=== PATIENT | male | born 1970 | race Caucasian/White ===

== ENCOUNTER 2019-06-25 07:51 | Inpatient (IN) | payer OTHER ==
[~2019-06-25] VITALS: Ht 167.6 cm; Wt 126.7 kg
[~2019-06-25 07:51] MED LIST: AMLODIPINE BESY10 MG PO; ASPIR 8181 MG PO; BENADRYL25 MG PO; COREG25 MG PO; CYMBALTA60 MG PO; DEMADEX20 MG PO; LEVEMIR SUBQ; LISINOPRIL40 MG PO; LISINOPRIL5 MG PO; NEURONTIN600 MG PO; NORCO 10-325 T1 EACH PO; OMEPRAZOLE 20 M20 M1 PO; SENNA8.6 MG PO
[2019-06-25 08:05] VITALS: BP 128/61
[2019-06-25] MEDS ORDERED: SPIRONOLACTONE25 MG PO (08:23)
[2019-06-25 08:34] LABS: ABSOLUTE NEUTROPHILS 7.3 thou/uL (1.4-8.2); BASOPHILS 0.6 % (0.0-2.0); EOSINOPHILS 3.1 % (0.0-3.0); HEMATOCRIT 28.1 % (42.0-52.0); HEMOGLOBIN 9.2 gm/dL (14.0-18.0); LYMPHOCYTES 12.8 % (24.0-44.0); MCH 29.9 pg (26.0-34.0); MCHC 32.7 g/dL (28.0-37.0); MCV 91.6 fL (80.0-100.0); MONOCYTES 7.1 % (1.0-8.0); PLATELET COUNT 265 thou/uL (150-400); POLYS 76.4 % (36.0-66.0); RBC 3.07 mil/uL (4.50-6.00); RDW 13.6 % (10.5-14.5); WBC 9.5 thou/uL (4.0-11.0)
[2019-06-25 08:50] LABS: MAGNESIUM 1.8 mg/dL (1.8-2.4); PHOSPHORUS 4.2 mg/dL (2.5-4.9); TROPONIN-I <0.06 ng/mL (<0.06)
[2019-06-25 08:52] LABS: ALBUMIN 2.6 g/dL (3.4-5.0); CALCIUM 9.2 mg/dL (8.5-10.1); CREATININE 2.9 mg/dL (0.7-1.3); TOTAL BILIRUBIN 0.2 mg/dL (<0.1-1.0); TOTAL PROTEIN 7.8 g/dL (6.4-8.2)
[2019-06-25 08:54] LABS: POTASSIUM 6.6 mmol/L (3.5-5.1)
[2019-06-25 09:01] LABS: URINE BILIRUBIN NEGATIVE (Negative); URINE BLOOD TRACE (Negative); URINE CLARITY CLEAR; URINE COLOR YELLOW; URINE GLUCOSE-RANDOM* 1+ (Negative); URINE KETONES NEGATIVE (Negative); URINE LEUKOCYTES-REFLEX NEGATIVE (Negative); URINE NITRITE-REFLEX NEGATIVE (Negative); URINE PROTEIN (DIPSTICK) 2+ (Negative); URINE UROBILINOGEN 0.2 E.U./dl (0.2-1.0)
[2019-06-25 09:09] LABS: BACTERIA-REFLEX 1-9 Few /HPF (None Seen); CASTS None Seen /LPF (None Seen); CRYSTALS None Seen /LPF (None Seen); SQUAMOUS 0-3 Few /LPF (0-3); URINE RBC None Seen /HPF (0-2); URINE WBC-REFLEX None Seen /HPF (0-5)
[2019-06-25 09:43] VITALS: BP 111/55
--- NOTE | 2019-06-25 10:09 | NUR ---
FIRST ATTEMPT REPORT AT 1007
[2019-06-25 10:25] VITALS: BP 119/40
[2019-06-25 10:38] LABS: CHOLESTEROL 278 mg/dL (<200); HDL CHOLESTEROL 37 mg/dL (>40); TC:HDL 7.5 Ratio (Not establshd); TRIGLYCERIDE 472 mg/dL (<150); VLDL 94 mg/dL (<40)
[2019-06-25 10:48] VITALS: BP 117/65
[2019-06-25 15:34] VITALS: BP 148/62
[2019-06-25 16:26] LABS: CALCIUM 9.2 mg/dL (8.5-10.1); CREATININE 2.7 mg/dL (0.7-1.3); POTASSIUM 5.8 mmol/L (3.5-5.1)
[2019-06-25 17:12] LABS: % SATURATION 11 % (20-39); IRON 19 ug/dL (65-175); TIBC 174 ug/dL (250-450)
--- NOTE | 2019-06-25 18:59 | NUR ---
pt admitted from ER for high potassium at 1040am , pt is continuing NS @ 125ML/HR, pt's vs are stable , pt denies pain and SOB at this time, pt 's potassium recheck was 5.8 at 1530pm, has improved ( K 6.6 at 0816am), RN has called dr to report K 5.8, new order receved.
[2019-06-25 19:45] VITALS: BP 154/70
[2019-06-26 00:24] VITALS: BP 155/75
[2019-06-26 02:06] LABS: GLYCOHEMOGLOBIN (HGB A1C) 11.1 % (4.8-5.6)
[2019-06-26 04:40] VITALS: BP 151/53
[2019-06-26 05:54] LABS: ABSOLUTE NEUTROPHILS 6.5 thou/uL (1.4-8.2); BASOPHILS 0.5 % (0.0-2.0); EOSINOPHILS 2.4 % (0.0-3.0); HEMATOCRIT 26.3 % (42.0-52.0); HEMOGLOBIN 8.7 gm/dL (14.0-18.0); LYMPHOCYTES 15.5 % (24.0-44.0); MCH 30.4 pg (26.0-34.0); MCHC 33.1 g/dL (28.0-37.0); MCV 91.8 fL (80.0-100.0); MONOCYTES 6.6 % (1.0-8.0); PLATELET COUNT 248 thou/uL (150-400); RBC 2.87 mil/uL (4.50-6.00); RDW 13.6 % (10.5-14.5); WBC 8.7 thou/uL (4.0-11.0)
[2019-06-26 06:00] LABS: CALCIUM 8.7 mg/dL (8.5-10.1); CREATININE 2.3 mg/dL (0.7-1.3); MAGNESIUM 1.6 mg/dL (1.8-2.4); POTASSIUM 5.4 mmol/L (3.5-5.1)
--- NOTE | 2019-06-26 06:42 | NUR ---
PATIENT IS ADVANCING IN HIS CARE PLAN. VITAL SIGNS STABLE WITH PATIENT HAVING NO COMPLAINTS OF NAUSEA. PATIENT DID STATE PAIN IN FEET WHICH WAS TREATED APPROPRIATELY TO PROVIDERS ORDER. FULLY ALERT AND ORIENTED, PATIENT IS ABLE TO CALL FOR NEEDS APPROPRIATELY AND PARTICIPATE IN CARE. UP MULTIPLE TIMES WITH ASSISTANCE TO BATHROOM, PATIENT IS CONSIDERED A HIGH FALL RISK. CONTINUE PLAN OF CARE.
[2019-06-26 07:04] VITALS: BP 145/81
--- NOTE | 2019-06-26 09:03 | HC ---
[facility] [place] [place] [address] CONSULTATION Name: JOSÉ ANTONIO CHOUDHURY Room #: 361-P ADM IN M.R.#: [id number] Admission: 06/25/19 Attend Phys: Kenny Bartlett MD Discharge: Date of : 66 Report #: [id number] THIS REPORT FOR: //name// CC: Pepper Joe primary care physician DATE OF SERVICE: 06/25/2019 CONSULTING PHYSICIAN: Dr. Hang Packer. REASON FOR CONSULTATION: Uncontrolled type 2 diabetes mellitus, severe hyperglycemia. HISTORY OF PRESENT ILLNESS: This is a 48-year-old male patient whose medical background is noted for type 2 diabetes mellitus, chronic kidney disease, and obesity who presented to our ER earlier today on the account of feeling strange fatigued, tired and what he believed was an altered mentation. He was admitted for further care and monitoring. He was found to have hyperkalemia as well. The patient notes that he has had type 2 diabetes mellitus for many years and is now maintained on a regimen of Levemir insulin 80 units twice a day in addition to NovoLog insulin taken as 10 units 2-3 times a day. He has been monitoring his blood glucose at home more frequently with a FreeStyle Leandro monitor and has noted a blood glucose values are typically in the 200-300 mg/dL range. He does have occasional hypoglycemia, although these are usually mild to moderate in nature. The patient is known to have peripheral diabetic neuropathy as well as chronic kidney disease stage 3. However, he is not aware of issues pertaining to coronary artery disease and he does not have a prior CVA history. The patient has diabetic retinopathy, which required injection therapy, but not laser surgery in the past. The patient does not have a history of pancreatitis and is not aware of a personal or family history of thyroid cancer. The patient is not currently on lipid-lowering therapy. REVIEW OF SYSTEMS: CONSTITUTIONAL: Fatigue, tiredness, but not fever or chills or body weight changes. HEENT: Negative for sore throat, sinus pain, ear drainage. PULMONARY: Negative for shortness of breath, cough or hemoptysis. CARDIAC: Negative for chest pain, palpitations, syncope or presyncope. GASTROINTESTINAL: Negative for abdominal pain, nausea, vomiting or changes in bowel movement frequency. NEUROLOGY: Negative for loss of consciousness or seizure activity, but noted [address] [address] CONSULTATION Name: JOSÉ ANTONIO CHOUDHURY Room #: 361-P [facility] IN ..#: [id number] Admission: 06/25/19 Attend Phys: Kenny Bartlett MD Discharge: Date of : 66 Report #: [id number] for subtle mental status changes as well as baseline peripheral neuropathy. PSYCHIATRIC: Negative for delusions, hallucinations, but noted for feeling strange as noted above. SKIN: Negative for rash, ulceration or other major abnormalities. Otherwise, his review of systems noncontributory unless mentioned in HPI. PAST MEDICAL HISTORY: 1. Type 2 diabetes mellitus. 2. Peripheral diabetic neuropathy. 3. Diabetic retinopathy. 4. Chronic kidney disease stage 3. 5. Hypertension. 6. Obesity. 7. GERD. ACTIVE OUTPATIENT MEDICATIONS: Include Levemir insulin 80 units twice a day, NovoLog insulin 10 units 2-3 times a day, lisinopril 10 mg daily, torsemide 10 mg daily, Cymbalta 60 mg b.i.d., amlodipine 10 mg b.i.d., carvedilol 25 mg b.i.d., gabapentin 600 mg at bedtime, hydrocodone q hours p.r.n. pain, omeprazole 20 mg daily, spironolactone 25 mg b.i.d. ALLERGIES: THE PATIENT NOTES THAT HE IS ALLERGIC TO SOME FORM OF ANTIBIOTIC AND IBUPROFEN. FAMILY HISTORY: Noncontributory. SOCIAL HISTORY: The patient denies use of tobacco, alcohol or illicit drugs. He is , has one child. 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 PHYSICAL EXAMINATION: GENERAL: Pleasant male patient who is not in apparent pain or distress. VITAL SIGNS: Blood pressure is 117/65 mmHg, heart rate is 68 beats per minute, respirations 18 per minute, temperature 37.1 degrees. CONSTITUTIONAL: The patient is lying in bed, seems comfortable, not in pain or distress. HEENT: Anicteric sclerae. Intact extraocular motions. NECK: Supple, without JVD, carotid bruits or lymphadenopathy. I do not appreciate thyromegaly. CHEST: Clear to auscultation with good air entry bilaterally. No wheeze or crackles. HEART: Regular rate and rhythm without murmurs or gallops. ABDOMEN: Obese, soft, lax. No guarding, no organomegaly. Active bowel sounds. EXTREMITIES: Lower extremity exam, trace ankle edema, skin breaks, ulcerations. Pedal pulses are appreciated. NEUROLOGIC: Awake, alert and oriented to time, place and person. The remainder [facility] [address] [place] [address] CONSULTATION Name: JOSÉ ANTONIO CHOUDHURY Room #: 361-P [place].#: [id number] Admission: 06/25/19 Attend Phys: Kenny Bartlett MD Discharge: Date of : 66 Report #: [id number] of his examination is nonfocal other than sensory deficits over both lower extremities. PSYCHIATRIC: Pleasant, interactive. Normal thought process. Normal mood and affect. LABORATORY DATA: On arrival to the ER, blood glucose was 241. Otherwise, sodium 129, potassium 6.6, chloride 99, CO2 of 20, anion gap 10, BUN 65, creatinine 2.9, glucose by blood draw 357. AST at 13, total bilirubin 0.2, calcium 9.2, phosphorus 4.2, magnesium 1.8, alkaline phosphatase is 86, ALT 11, total protein 7.8, albumin 2.6, EGFR 23. Lactic acid 1.2. Total CPK 171. Troponin negative. Total cholesterol 278, triglycerides 472, HDL 37, LDL cannot be calculated. BNP 1096. White blood count 9.5, hemoglobin 9.2, hematocrit 28.1, platelets 265. Hemoglobin A1c was done and is pending, a cortisol level in November 2018 was 8.8. ASSESSMENT AND PLAN: 1. Type 2 diabetes mellitus. As noted above, the patient has had a longstanding history of type 2 diabetes mellitus and his background is significant for fairly large requirement of daily, insulin intake. An important remark about the patient's insulin intake is that he has far higher basal intake that he does, short-acting intake to where he is not likely getting adequate coverage for his meals. This was discussed with him at length and I explained that it would be favorable to try and balance out below his basal bolus regimen to where his meal coverage is done to a sufficient degree. That said, I will initiate therapy with Levemir at a dose of 50 units twice a day, but raise his meal coverage to 25 t.i.d. a.c., while we provide support with moderate intensity Humalog supplemental scale. Blood glucose monitoring will commence a.c. and at bedtime, so as to adjust his regimen further as needed. Long-term, the patient would likely benefit from the addition of a GLP-1 analog and I stressed the importance of effective diet and exercise measures in the sense of losing body weight and further assisting with his diabetic control. The patient does not have any major contraindications to a GLP-1 analog. Again this is consideration to be undertaken in the outpatient setting. I will get a hemoglobin A1c to better assess his more recent level of control. 2. Dyslipidemia. The patient has severe dyslipidemia. He was counseled about this issue as well as about the risk of pancreatitis and CBD this is associated with it. Hopefully, improving his glycemic control should significantly impact dyslipidemia in a positive way. Until then, I would rather initiate therapy with fenofibrate to help with aspect of care. 3. Diabetic neuropathy. This has been a longstanding and difficult to treat issue. In fact, the patient notes that he had not been able to control his symptoms adequately with gabapentin, which prompted the use of narcotics emt intermediate. He is to continue the same regimen for the time being. 4. Chronic kidney disease. The patient is known to have chronic kidney disease consistent with end-stage kidney disease. His current indices probably point [address] [address] CONSULTATION Name: JOSÉ ANTONIO CHOUDHURY Room #: 361-P [facility] IN M.R.#: [id number] Admission: 06/25/19 Attend Phys: Kenny Bartlett MD Discharge: Date of : 66 Report #: [id number] too early stage 4 chronic kidney disease. 5. Hyponatremia/hyperkalemia. These are significant and given the current pattern, I would like to screen the patient for adrenal insufficiency with a random cortisol as well as ensure the adequacy of his thyroid function with a TSH and free T4. Further steps and workup and treatment will be determined as per these pending results. I certainly appreciate this consultation by Dr. Packer. <ELECTRONICALLY SIGNED> By: Lynne Chang MD 06/26/19 0903 [id number] [id number] Lynne Chang MD /nt
--- NOTE | 2019-06-26 11:30 | NUR ---
ASSUMED CARE OF PT AT 0700. PT AND FRUSTRATED THEY HAVE TO STAY ANOTHER DAY IN HOSPITAL. WORRIED ABOUT DISABLED SON AT HOME AND UPCOMING WINTER STORM. PHYSICIAN NOTIFIED OF PATIENTS WISHES TO LEAVE AMA - PHYSICIAN AWARE. AMA PAPERS SIGNED BY PATIENT WITH TWO RN'S WITNESSES.
--- NOTE | 2019-06-26 14:20 | EKG ---
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
--- NOTE | 2019-07-02 08:35 | HC ---
[facility] [place] [place] [address] CONSULTATION Name: JOSÉ ANTONIO CHOUDHURY Room #: 361-P [facility] IN M.R.#: [id number] Admission: 06/25/19 Attend Phys: Kenny Bartlett MD Discharge: 06/26/19 Date of : 66 Report #: [id number] THIS REPORT FOR: //name// CC: Pepper Joe REASON FOR CONSULTATION: Hyperkalemia. REASON FOR PRESENTATION: Malaise, cough and drowsiness. HISTORY OF PRESENT ILLNESS: A 48-year-old with past medical history of diabetes mellitus, hypertension, chronic kidney disease with a baseline creatinine of around 2.0, presented having issues with malaise and confusion along with jerking body movements. He also reported that he has not had a normal thought process. He actually saw me in the clinic back in May and his creatinine was stable and he was supposed to see me in 6 months. He did not have any issues with potassium at that time; however, he is maintained on lisinopril and . He has significant proteinuria. He has all diabetic complications including foot ulcer in the past. When the patient came to the emergency room, he was found to have an acute kidney injury with a creatinine above his baseline and hyperkalemia. Of notice is the fact that the patient was treated for a similar event back in November of this year. PAST MEDICAL HISTORY: 1. Diabetes mellitus. 2. Hypertension. 3. Diabetic nephropathy. 4. Diabetic retinopathy. 5. Peripheral neuropathy. 6. Left arm surgery with transposition of a nerve. 7. Foot ulcer. 8. Recurrent episodes of hyperkalemia. 9. Poorly controlled blood sugar. MEDICATIONS: 1. Amlodipine. 2. Carvedilol. 3. Gabapentin. 4. Lisinopril. 5. Aspirin. 6. Insulin. FAMILY HISTORY: Strong family history of diabetes mellitus and hypertension. REVIEW OF SYSTEMS: GENERAL: No fever or chills. [facility] [address] [place] [address] CONSULTATION Name: JOSÉ ANTONIO CHOUDHURY Room #: 361-P [facility] IN [facility].#: [id number] Admission: 06/25/19 Attend Phys: Kenny Bartlett MD Discharge: 06/26/19 Date of : 66 Report #: [id number] EYES: He had some issues with his retinopathy. ENDOCRINE: Poorly controlled diabetes mellitus with hemoglobin A1c as high as 11. PULMONARY: No cough or hemoptysis. CARDIAC: No chest pain or palpitation. GASTROINTESTINAL: No nausea or vomiting. GENITOURINARY: No frequency or urgency. NEUROLOGICAL: As per the history of present illness. PHYSICAL EXAMINATION: GENERAL: He is alert, oriented, in no apparent distress. VITAL SIGNS: Blood pressure is 119/40. HEAD AND NECK: No jugular venous distention. CHEST: No crackles. CARDIOVASCULAR: Regular with no rub detected. ABDOMEN: Soft, nontender with no hepatosplenomegaly. LOWER EXTREMITIES: Noted. LABORATORY DATA: Reviewed. Hemoglobin is 9.2. Sodium is 129, potassium 6.6, BUN 65 and creatinine is 2.9. Blood sugar is elevated at 357. IMPRESSION AND PLAN: 1. Acute kidney injury. 2. Chronic kidney disease with a baseline creatinine of around 2. 3. 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 4. Poorly controlled diabetes mellitus. 5. His hyperkalemia was treated in the emergency room and I agree with continuing with the IV fluid for now. 5. Repeat potassium level at noon. 6. Stop lisinopril. 7. Stop spironolactone. 8. Needs better blood sugar control. 9. No need for diuresis at this point. 10. Expect his potassium to continue to improve. I do not think that the patient is a good candidate for spironolactone and will just keep on lisinopril once his potassium issues resolve. <ELECTRONICALLY SIGNED> By: Pepper Morales MD 07/02/19 0835 1040 [id number] Pepper Morales MD /nt
== END 2019-06-26 11:33 | disposition left against medical advice (07) | DRG 682 ==
LOC: ER 07:51 → EROBS 10:14 → 3W 10:14
PROVIDERS: Emergency Medicine; Nurse Practitioner; ADMIT Hospitalist
DX: N17.0 Acute kidney failure with tubular necrosis (principal); G93.41 Metabolic encephalopathy; E87.1 Hypo-osmolality and hyponatremia; E44.0 Moderate protein-calorie malnutrition; Z68.42 Body mass index [BMI] 45.0-49.9, adult; E11.319 Type 2 diabetes mellitus with unspecified diabetic retinopathy without macular edema; E87.5 Hyperkalemia; E78.5 Hyperlipidemia, unspecified; E11.22 Type 2 diabetes mellitus with diabetic chronic kidney disease; T50.0X5A Adverse effect of mineralocorticoids and their antagonists, initial encounter; E66.9 Obesity, unspecified; D64.9 Anemia, unspecified; K21.9 Gastro-esophageal reflux disease without esophagitis; E11.65 Type 2 diabetes mellitus with hyperglycemia; E11.42 Type 2 diabetes mellitus with diabetic polyneuropathy; N18.4 Chronic kidney disease, stage 4 (severe); I12.9 Hypertensive chronic kidney disease with stage 1 through stage 4 chronic kidney disease, or unspecified chronic kidney disease; Z53.29 Procedure and treatment not carried out because of patient's decision for other reasons; Z79.899 Other long term (current) drug therapy; Z86.31 Personal history of diabetic foot ulcer; Z79.82 Long term (current) use of aspirin; Z83.3 Family history of diabetes mellitus; Z82.49 Family history of ischemic heart disease and other diseases of the circulatory system; Z79.4 Long term (current) use of insulin; Z88.1 Allergy status to other antibiotic agents; Z88.8 Allergy status to other drugs, medicaments and biological substances; Y92.89 Other specified places as the place of occurrence of the external cause; Z91.19 Patient's noncompliance with other medical treatment and regimen
CPT/HCPCS: 10879

== ENCOUNTER 2021-04-16 01:51 | Emergency (ER) | payer OTHER ==
[~2021-04-16] VITALS: Ht 188 cm; Wt 124.3 kg
[~2021-04-16 01:51] MED LIST changes: +SPIRONOLACTONE25 MG PO
[2021-04-16] MEDS ORDERED: HUMALOG100 UNIT/1 SUBQ (02:56)
[2021-04-16] MEDS ORDERED: LISINOPRIL20 MG PO (02:57)
[2021-04-16] MEDS ORDERED: TORSEMIDE20 MG PO (02:58)
[2021-04-16 03:04] LABS: ABSOLUTE NEUTROPHILS 8.2 thou/uL (1.4-8.2); BASOPHILS 0.6 % (0.0-2.0); EOSINOPHILS 2.2 % (0.0-3.0); HEMATOCRIT 27.1 % (42.0-52.0); LYMPHOCYTES 15.6 % (24.0-44.0); MCH 30.2 pg (26.0-34.0); MCHC 33.2 g/dL (28.0-37.0); MCV 91.1 fL (80.0-100.0); MONOCYTES 4.7 % (1.0-8.0); PLATELET COUNT 262 thou/uL (150-400); POLYS 76.9 % (36.0-66.0); RBC 2.97 mil/uL (4.50-6.00); RDW 14.4 % (10.5-14.5); WBC 10.6 thou/uL (4.0-11.0)
[2021-04-16 03:09] LABS: CREATININE 3.1 mg/dL (0.7-1.3); POTASSIUM 3.4 mmol/L (3.5-5.1)
[2021-04-16] MEDS ORDERED: AMOXICILLIN875 MG PO (03:31)
[2021-04-16] MEDS ORDERED: PROAIR HFA8.5 GM INH (03:31)
[2021-04-16 03:37] VITALS: BP 171/87
--- NOTE | 2021-04-17 07:27 | EKG ---
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1970 Requested By: Jaime Redmond Order Number: [id number] MD: Jim Silveira Measurements Intervals [place] Rate: 87 P: 43 [place]: 155 QRS: 41 QRSD: 88 T: 122 QT: 395 QTc: 476 Interpretive Statements Sinus rhythm Ventricular premature complex Probable left atrial enlargement Abnormal R-wave progression, late transition Repol abnrm suggests ischemia, lateral leads Minimal ST elevation, inferior leads Compared to ECG 06/25/2019 08:03:34 Ventricular premature complex(es) now present Early repolarization now present Possible ischemia now present ST (T wave) deviation now present Electronically Signed On 04-17-2021 7:27:17 CDT by Jim Silveira [email or web address] <ELECTRONICALLY SIGNED> By: Jim Silveira MD, FACC 04/17/21 0727 2 2 Jim Silveira MD, FACC /EPI
== END 2021-04-16 04:00 | disposition home or self-care (01) ==
LOC: ER 01:51
PROVIDERS: Emergency Medicine
DX: J18.9 Pneumonia, unspecified organism (principal); D64.9 Anemia, unspecified; I12.9 Hypertensive chronic kidney disease with stage 1 through stage 4 chronic kidney disease, or unspecified chronic kidney disease; N18.30 Chronic kidney disease, stage 3 unspecified; E10.22 Type 1 diabetes mellitus with diabetic chronic kidney disease; Z79.4 Long term (current) use of insulin; Z79.891 Long term (current) use of opiate analgesic; Z79.899 Other long term (current) drug therapy